=== PATIENT | female | born 1985 | race Caucasian/White ===

== ENCOUNTER 2018-12-30 10:44 | Inpatient (IN) | payer OTHER ==
[~2018-12-30] VITALS: Ht 175.3 cm; Wt 115.2 kg
[2019-01-29] MEDS ORDERED: OBSTETRIX ONE1 EACH PO (08:20)
== END 2019-01-31 10:52 | disposition home or self-care (01) | DRG 807 ==
LOC: OB/GYN 01-06 10:45 → LDR 01-28 18:07 → OB/GYN 01-29 18:39
PROVIDERS: ADMIT Obstetrics & Gynecology
PROC: 4A1HXCZ Monitoring of Products of Conception, Cardiac Rate, External Approach (ICD-10-PCS; 2019-01-28)
PROC: 10E0XZZ Delivery of Products of Conception, External Approach (ICD-10-PCS; principal; 2019-01-29)
PROC: 0KQM0ZZ Repair Perineum Muscle, Open Approach (ICD-10-PCS; 2019-01-29)
PROC: 3E033VJ Introduction of Other Hormone into Peripheral Vein, Percutaneous Approach (ICD-10-PCS; 2019-01-29)
PROC: 4A033R1 Measurement of Arterial Saturation, Peripheral, Percutaneous Approach (ICD-10-PCS; 2019-01-29)
DX: O70.1 Second degree perineal laceration during delivery (principal); Z37.0 Single live birth; Z3A.39 39 weeks gestation of pregnancy

== ENCOUNTER 2019-01-23 16:52 | Outpatient (CLI) | payer OTHER | END 2019-01-23 17:40 | disposition home or self-care (01) | LOC: NST 16:52 | DX: Z34.83 Encounter for supervision of other normal pregnancy, third trimester (principal) ==